=== PATIENT | female | born 2000 | race Two or more races ===

== ENCOUNTER 2019-08-14 19:59 | Emergency (ER) | payer MEDICAID ==
[~2019-08-14] VITALS: Ht 160 cm; Wt 72.6 kg
[2019-08-14 20:18] VITALS: BP 118/59
[2019-08-15] MEDS ORDERED: IBUPROFEN 800 MG TAB PO ONE (01:30)
[2019-08-15] MEDS ORDERED: METHOCARBAMOL 500 MG TAB PO ONE (01:30)
== END 2019-08-15 01:32 | disposition home or self-care (01) ==
LOC: ER 20:02
DX: S80.02XA Contusion of left knee, initial encounter (principal); S30.1XXA Contusion of abdominal wall, initial encounter; M62.838 Other muscle spasm; V49.49XA Driver injured in collision with other motor vehicles in traffic accident, initial encounter; Y93.89 Activity, other specified; Y99.8 Other external cause status; Y92.89 Other specified places as the place of occurrence of the external cause
CPT/HCPCS: 70450; 72125; 72131; 73562; 74176; 81025

== ENCOUNTER 2021-05-23 14:48 | Emergency (ER) | payer MEDICAID ==
[~2021-05-23] VITALS: Ht 160 cm; Wt 65.8 kg
[2021-05-23 15:04] VITALS: BP 110/51
== END 2021-05-23 16:41 | disposition home or self-care (01) ==
LOC: ER 14:48
DX: S00.452A Superficial foreign body of left ear, initial encounter (principal); W22.8XXA Striking against or struck by other objects, initial encounter; Y93.89 Activity, other specified; Y92.89 Other specified places as the place of occurrence of the external cause; Y99.8 Other external cause status

== ENCOUNTER 2024-11-03 22:19 | Emergency (ER) | payer MEDICAID, OTHER ==
[~2024-11-03] VITALS: Ht 160 cm; Wt 63.1 kg
[~2024-11-03 22:19] MED LIST: NITR-87 PO
[2024-11-04 00:30] LABS: Rapid Influenza A Negative (Negative); Rapid Influenza B Negative (Negative)
--- NOTE | 2024-11-04 00:42 | ED.PDOC ---
GI ASSESSMENT HPI Comments This is a 24-year-old female patient presents to the ED chief complaint flu-like symptoms times 24 hours. Patient states fever on measured, body aches, nausea vomiting diarrhea x1 day. Patient states other family members at home with same symptoms. Denies shortness of breath chest pain difficulty breathing or abdominal pain. 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 History Family History Family History: Reviewed,noncontributory to illness Social History Smoker: Non-Smoker Alcohol: Denies ETOH Use Drugs: Other Lives In: Home Constitutional: reports: fever; denies: chills, diaphoresis, fatigue, malaise, sweats, weakness, others EENTM: denies: blurred vision, double vision, ear bleeding, ear discharge, ear drainage, ear pain, ear ringing, eye pain, eye redness, hearing loss, mouth pain, mouth swelling, nasal discharge, nose bleeding, nose congestion, nose pain, photophobia, tearing, throat pain, throat swelling, voice changes, others Respiratory: denies: cough, hemoptysis, orthopnea, SOB at rest, shortness of breath, SOB with excertion, stridor, wheezing, others Gastrointestinal: reports: diarrhea, nausea, vomiting; denies: abdomen distended, abdominal pain, blood streaked bowels, constipated, dysphagia, difficulty swallowing, hematemesis, melena, poor appetite, poor fluid intake, rectal bleeding, rectal pain, others Genitourinary: denies: abnormal vagina bleeding, burning, dyspareunia, dysuria, flank pain, frequency, hematuria, incontinence, pain, , vagina discharge, urgency, others Neurological: denies: dizziness, fainting, headache, left sided numbness, left sided weakness, numbness, paresthesia, pre-existing deficit, right sided numbness, right sided weakness, seizure, speech problems, tingling, tremors, weakness, others Musculoskeletal: denies: back pain, gout, joint pain, joint swelling, muscle pain, muscle stiffness, neck pain, others Integumetry: denies: bruises, change in color, change in hair/nails, dryness, laceration, lesions, lumps, rash, wounds, others Allergic/Immunocompromised: denies: Difficulty Healing, Frequent Infections, Hives, Itching, others Hematologic/Lymphatic: denies: anemia, blood clots, easy bleeding, easy bruising, swollen glands, others Endocrine: denies: excessive hunger, excessive sweating, excessive thirst, excessive urination, flushing, intolerance to cold, intolerance to heat, unexplained weight gain, unexplained weight loss, others Psychiatric: denies: anxiety, bipolar disorder, depression, hopeless, panic disorder, schizophrenia, sleepless, suicidal, others Physical Exam General Appearance: No Apparent Distress, Normal HEENT: Normal ENT Inspection, Pharynx Normal, TMs Normal Neck: Full Range of Motion, Non-Tender, Normal, Normal Inspection Respiratory: Chest Non-Tender, Lungs Clear, No Accessory Muscle Use, No Respiratory Distress, Normal Breath Sounds Cardiovascular: No Edema, No JVD, No Murmur, No Gallop, Normal Peripheral Pulses, Regular Rate/Rhythm Breast Exam: Deferred Gastrointestinal: No Organomegaly, Non Tender, No Pulsatile Mass, Normal Bowel Sounds, Soft Genitalia: Deferred Pelvic: Deferred Rectal: Deferred Extremities: No calf tenderness, Normal capillary refill, Normal inspection, Normal range of motion, Non-tender, No pedal edema Musculoskeletal : Apperance: Normal Neurologic: Alert, senior software engineering manager II-XII nml as Tested, No Motor Deficits, Normal Affect, Normal Mood, No Sensory Deficits Cerebellar Function: Normal Reflexes: Normal Skin: Dry, Normal Color, Warm Lymphatic: No Adenopathy Was a procedure done? Was a procedure done?: No GI differential Dx Differential Diagnosis: Gastroenteritis X-Ray, Labs, Meds, VS Vital Signs Date Time Temp Pulse Resp B/P (MAP) Pulse Ox O2 Delivery O2 Flow Rate FiO2 11/04/24 00:45 98.1 68 18 101/51 (68) 97 98.1 11/04/24 00:45 68 18 97 Room Air 11/03/24 22:34 97.8 80 16 103/62 (76) 97 Lab Test 11/03/24 23:43 Range/Units Influenza Type A Antigen Negative Negative Influenza Type B Antigen Negative Negative X-Ray, Labs, Meds, VS Comment Influenza a and B swab negative. Likely gastroenteritis. Advised to rest, increase p.o. fluids with electrolytes. Follow up with PCP in 2-3 days as necessary. Consider brat diet for the diarrhea. ER return precautions given. Patient agrees with discharge plan of care. Time of 1ST Reevaluation: 00:41 Reevaluation 1ST: Improved Patient Education/Counseling: Diagnosis, Treatment Family Education/Counseling: Diagnosis, Treatment, Prognosis, Need For Follow Up Departure 1 Departure Time of Disposition: 00:41 Impression: Primary Impression: Gastroenteritis Disposition: 01 HOME / SELF CARE / HOMELESS Condition: Stable Discharged With: Self Critical Care Note Critical Care Time?: No Stability Stability form required: LEVY Albright Nov 04, 2024 00:42
[2024-11-04 00:45] VITALS: BP 101/51; PULSE 68; RESP 18; TEMP 98.1; O2SAT 97
== END 2024-11-04 00:53 | disposition home or self-care (01) ==
LOC: ER 22:19
DX: K52.9 Noninfective gastroenteritis and colitis, unspecified (principal); Z20.822 Contact with and (suspected) exposure to COVID-19
CPT/HCPCS: 87804

== ENCOUNTER 2025-02-23 00:55 | Emergency (ER) | payer SELFPAY ==
[~2025-02-23] VITALS: Ht 160 cm; Wt 64.7 kg
[2025-02-23] MEDS: TETRACAINE HCL 0.5% OPTH(EYE) SOLN 4ML LEFTEYE ONE (04:46)
[2025-02-23] MEDS ORDERED: MOXI0.5D9 LEFTEYE (04:49)
--- NOTE | 2025-02-23 04:49 | ED.PDOC ---
Eye-HPI HPI Comments PT PRESENTED TO ED FOR LEFT EYE PAIN SINCE 1700 YESTERDAY. PT ALSO PRESENTING W ITH DRY COUGH AND RUNNY NOSE BUT STATED SHE IS MORE CONCERNED ABOUT EYE PAIN. LEFT EYE REDNESSNOTED WITH MINIMAL SWELLING. PT DENIED LOSS OF VISION Chief Complaint: Eye Problem Time Seen by MD: 02:10 Primary Care Provider: GARRETT Patel Notes: Nurses Notes, Medications, Allergies Allergies: Coded Allergies: NO KNOWN ALLERGIES (Unverified , 04/03/13) Home Meds Active Scripts Moxifloxacin Hydrochloride (Moxifloxacin) 0.5 % Matt, 1 DROP LEFTEYE TID for 7 Days, #2 ML Prov:LEVY AGUSTIN ONLINE CONTENT COORDINATOR 02/23/25 Nitrofurantoin Monohydrate Mac (Macrobid) 100 Mg Cap, 100 MG PO BID for 7 Days, #14 CAP Prov:JOSE DAVID GEORGE ONLINE CONTENT COORDINATOR 11/18/23 Information Source: Patient Mode of Arrival: Ambulatory Past Medical History PAST MEDICAL HISTORY: Denies Surgical History: Denies all surgeries TIRE BUFFER History: No Pertinent TIRE BUFFER History Family History Family History: Reviewed,noncontributory to illness Social History Smoker: Non-Smoker Alcohol: Denies ETOH Use Drugs: Other Lives In: Home Constitutional: denies: chills, diaphoresis, fatigue, fever, malaise, sweats, weakness, others EENTM: reports: eye pain, eye redness, nasal discharge; denies: blurred vision, double vision, ear bleeding, ear discharge, ear drainage, ear pain, ear ringing, hearing loss, mouth pain, mouth swelling, nose bleeding, nose congestion, nose pain, photophobia, tearing, throat pain, throat swelling, voice changes, others Respiratory: denies: cough, hemoptysis, orthopnea, SOB at rest, shortness of breath, SOB with excertion, stridor, wheezing, others Cardiovascular: denies: chest pain, dizzy spells, diaphoresis, Dyspnea on exertion, edema, irregular heart beat, left arm pain, lightheadedness, palpitations, PND, syncope, others Gastrointestinal: denies: abdomen distended, abdominal pain, blood streaked bowels, constipated, diarrhea, dysphagia, difficulty swallowing, hematemesis, melena, nausea, poor appetite, poor fluid intake, rectal bleeding, rectal pain, vomiting, others Genitourinary: denies: abnormal vagina bleeding, burning, dyspareunia, dysuria, flank pain, frequency, hematuria, incontinence, pain, , vagina discharge, urgency, others Neurological: denies: dizziness, fainting, headache, left sided numbness, left sided weakness, numbness, paresthesia, pre-existing deficit, right sided numbness, right sided weakness, seizure, speech problems, tingling, tremors, weakness, others Musculoskeletal: denies: back pain, gout, joint pain, joint swelling, muscle pain, muscle stiffness, neck pain, others Integumetry: denies: bruises, change in color, change in hair/nails, dryness, laceration, lesions, lumps, rash, wounds, others Allergic/Immunocompromised: denies: Difficulty Healing, Frequent Infections, Hives, Itching, others Hematologic/Lymphatic: denies: anemia, blood clots, easy bleeding, easy bruising, swollen glands, others Endocrine: denies: excessive hunger, excessive sweating, excessive thirst, excessive urination, flushing, intolerance to cold, intolerance to heat, une xplained weight gain, unexplained weight loss, others Psychiatric: denies: anxiety, bipolar disorder, depression, hopeless, panic disorder, schizophrenia, sleepless, suicidal, others Physical Exam General Appearance: No Apparent Distress, Normal HEENT: Pharynx Normal, TMs Normal, Other (HYPEREMIA LEFT SCLERA AND CONJUNCTIVA WITH NOTED CLEAR DRAINAGE. NO ORBITAL EDEMA OR ERYTHEMA) Neck: Full Range of Motion, Non-Tender Respiratory: Lungs Clear, No Respiratory Distress, Normal Breath Sounds Cardiovascular: No Murmur, Normal Peripheral Pulses, Regular Rate/Rhythm Breast Exam: Deferred Gastrointestinal: Non Tender, Soft Genitalia: Deferred Pelvic: Deferred Rectal: Deferred Extremities: Normal capillary refill, Normal inspection, Normal range of motion, Non-tender, No pedal edema Musculoskeletal : Apperance: Normal Neurologic: Alert, command and control specialist II-XII nml as Tested, No Motor Deficits, Normal Affect, Normal Mood, No Sensory Deficits Cerebellar Function: Normal Reflexes: Normal Skin: Dry, Normal Color, Warm Lymphatic: No Adenopathy Was a procedure done? Was a procedure done?: No EENT DIFF Eye: Chalazion, Conjunctivitis, Allergic, Bacterial, Corneal Ulceration, Foreign Body-Conjunctiva, Foreign Body-Corneal, Foreign Body-Intraocular, Foreign Body-Lid X-Ray, Labs, Meds, VS Vital Signs Date Time Temp Pulse Resp B/P (MAP) Pulse Ox O2 Delivery O2 Flow Rate FiO2 02/23/25 04:58 75 18 Room Air 0 02/23/25 04:55 98.9 75 18 105/63 (77) 99 98.9 02/23/25 01:16 98.9 75 18 105/63 (77) 99 98.9 Current Medications Medications (Trade) Dose Ordered Sig/Olga Route Start Time Stop Time Status Last Admin Tetracaine HCl (Tetracaine 0.5% Opth Soln) 1 drop ONCE ONCE LEFTEYE 02/23/25 04:45 02/23/25 04:46 DC 02/23/25 04:46 X-Ray, Labs, Meds, VS Comment BACTERIAL. SCRIPT MOXIFLOXACIN. TAKE MEDICATIONS PRESCRIBED SIDE EFFECTS DISCUSSED. FOLLOW UP WITH YOUR PCP IN 1-2 DAYS NECESSARY AND OR OPHTHALMOLOGY. [id number] TYLENOL OR MOTRIN NEEDED FOR THE PAIN PER LABELED DOSING INSTRUCTIONS. ER RETURN PRECAUTIONS GIVEN PATIENT INDICATES UNDERSTANDING AGREES WITH DISCHARGE PLAN OF CARE. Time of 1ST Reevaluation: 04:45 Reevaluation 1ST: Improved Patient Education/Counseling: Diagnosis, Treatment, Prognosis, Need For Follow Up Family Education/Counseling: No Family Present Departure 1 Departure Time of Disposition: 04:48 Impression: Primary Impression: Acute conjunctivitis of left eye Qualified Codes: H10.32 - Unspecified acute conjunctivitis, left eye Disposition: 01 HOME / SELF CARE / HOMELESS Condition: Stable e-Prescriptions Moxifloxacin Hydrochloride (Moxifloxacin) 0.5 % Matt 1 DROP LEFTEYE TID for 7 Days, #2 ML Prov: LEVY AGUSTIN 02/23/25 Discharged With: Self Critical Care Note Critical Care Time?: No Stability Stability form required: LEVY Albright Feb 23, 2025 04:49
[2025-02-23 04:55] VITALS: BP 105/63; TEMP 98.9; O2SAT 99
[2025-02-23 04:58] VITALS: PULSE 75; RESP 18
== END 2025-02-23 05:10 | disposition home or self-care (01) ==
LOC: ER 00:55
DX: H10.32 Unspecified acute conjunctivitis, left eye (principal); R05.9 Cough, unspecified; R09.89 Other specified symptoms and signs involving the circulatory and respiratory systems; Z79.899 Other long term (current) drug therapy